=== PATIENT | female | born 1965 | race Caucasian/White ===

== ENCOUNTER → 2017-08-06 | Outpatient (CLI) | payer OTHER, MEDICAID ==
--- NOTE | 2017-08-06 09:44 | MRI ---
HISTORY: Lumbar spondylosis, low back pain. Study: Noncontrast MRI of lumbar spine Comparison: No priors Technique: Multiplanar multi-sequence MRI of the lumbar spine was obtained. Sagittal T1, sagittal T2 , and stir weighted images, axial T1, and axial T2 images were obtained. Findings: The lumbar spine demonstrates normal alignment with the expected signal characteristics of the bone m arrow. The conus of the cord terminates normally. T12 -- L1: There is an inactive appearing upper endplate Schmorl's node at the L1 level posteriorly. No disc protrusion, central spinal stenosis or lateral foraminal stenosis is seen. L1 -- L2: Mild bilateral facet joint and ligamentum flavum hypertrophy. There is no evidence of centr al spinal stenosis or significant lateral foraminal stenosis. L2 -- L3: Mild bilateral facet joint and ligamentum flavum hypertrophy. No disc protrusion, central s donnie stenosis lateral foraminal stenosis is seen. L3 -- L4: Bilateral facet joint hypertrophy with ligamentum flavum hypertrophy. There is very mild bi lateral foraminal stenosis but no significant central spinal stenosis is seen. L4 -- L5: Concentric disc bulge with bilateral facet joint and mild ligamentum flavum hypertrophy. Th ere is mild bilateral foraminal stenosis. No significant central spinal stenosis is seen L5 -- S1: Unremarkable. IMPRESSION: Multilevel abnormalities as detailed above. Reported By:
== END | disposition home or self-care (01) ==
LOC: RAD 08:26
PROVIDERS: ATTEND Psychiatry & Neurology Neurology
DX: M47.896 Other spondylosis, lumbar region (principal); M51.46 Schmorl's nodes, lumbar region; M24.28 Disorder of ligament, vertebrae; M51.26 Other intervertebral disc displacement, lumbar region
CPT/HCPCS: 72148